=== PATIENT | female | born 1985 | race Caucasian/White ===

== ENCOUNTER 2018-07-22 02:44 | Inpatient (IN) | payer BC ==
[2018-07-22] MEDS ORDERED: Sodium Chloride 0.9% 10 ML Syringe FLUSH PRN (03:55)
[2018-07-22] MEDS ORDERED: ceFAZolin 2 GM in Premix Bag 1 BAG IV ONE (03:55)
[2018-07-22] MEDS ORDERED: Citric Acid/Sodium Citrate Solution 30 ML Cup PO ONE (03:55)
[2018-07-22] MEDS ORDERED: Metoclopramide 10 MG/2 ML SDV IVPUSH ONE (03:55)
[2018-07-22] MEDS ORDERED: Nalbuphine 20 MG/ML 1 ML Syringe IVPUSH PRN (03:55)
[2018-07-22] MEDS ORDERED: Lactated Ringers 1,000 ML IV SCH (04:00)
[2018-07-22] MEDS ORDERED: Oxytocin/Lactated Ringers 10 UNIT/1,000 ML BAG IV SCH (04:00)
[2018-07-22] MEDS ORDERED: Ketorolac 30 MG/ML SDV ONE (04:14)
[2018-07-22] MEDS ORDERED: ceFAZolin 1 GM Vial ONE (04:14)
[2018-07-22] MEDS ORDERED: Lactated Ringers 2,000 ML ONE (04:14)
[2018-07-22] MEDS ORDERED: Oxytocin 10 Units/1 ML SDV ONE (04:14)
[2018-07-22] MEDS ORDERED: Morphine PF 10 MG/10 ML SDV ONE (04:14)
[2018-07-22] MEDS ORDERED: Ondansetron 4 MG/2 ML SDV ONE (04:14)
--- NOTE | 2018-07-22 04:15 | PCM.LDHP ---
L&D History of Present Illness - General Date of Service: 07/22/18 Admit Problem/Dx: Patient Status Order with Admit Dx/Problem 07/22/18 02:55 Patient Status [ADT] Routine 07/22/18 03:56 Patient Status [ADT] Routine Admission Diagnosis/Problem Admission Diagnosis/Problem Source of Information: Patient History Limitations: Reports: No Limitations - History of Present Illness Introduction:: Patient is a 33 y/o at 36 2/7 wks who presents today with concerns of leaking fluid. Started this AM. No significant contractions otherwise. Notes good FM. 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: : 2 Para: 1 LMP (Approximate): Psychiatric History: Reports: Depression Endocrine/Metabolic History: Reports: Hypothyroidism, Other (See Below) (PCOS) - Past Surgical History HEENT Surgical History: Reports: Myringotomy w Tube(s), Oral Surgery Social & Family History - Tobacco Use Smoking Status *Q: Never Smoker - Alcohol Use Alcohol Use History: No - Recreational Drug Use Recreational Drug Use: No H&P Review of Systems - Review of Systems: Review Of Systems: See Below General: Reports: No Symptoms Pulmonary: Reports: No Symptoms Cardiovascular: Reports: No Symptoms Gastrointestinal: Reports: No Symptoms Genitourinary: Reports: No Symptoms Musculoskeletal: Reports: No Symptoms Psychiatric: Reports: No Symptoms Neurological: Reports: No Symptoms L&D Exam - Exam Exam: See Below - Vital Signs Weight: 57.606 kg - OB Specific Contraction Intensity: Mild Movement: Active Heart Tones: Present Heart Tones per Min: 145 Heart Rate (FHR) Variability: Moderate (6-25 bmp) Presentation: Transverse (back up) - Exam General: Alert, Oriented, Cooperative Lungs: Clear to Auscultation, Normal Respiratory Effort Cardiovascular: Regular Rate, Regular Rhythm GI/Abdominal Exam: Soft, Non-Tender Back Exam: Normal Inspection Extremities: Normal Inspection Skin: Warm, Dry, Intact - Patient Data Lab Results Last 24 hrs: Laboratory Results - last 24 hr 07/22/18 Range/Units 03:30 Membrane Rupture Positive H - Problem List (1) 36 to 37 weeks gestation of SNOMED Code(s): 472732003 ICD Code: [id number] - Status: Acute Current Visit: Yes (2) Spontaneous rupture of membranes SNOMED Code(s): 178771008 ICD Code: [id number] - Status: Acute Current Visit: Yes (3) Transverse or oblique presentation of fetus SNOMED Code(s): 48948397 ICD Code: O32.2XX0 - MATERNAL CARE FOR TRANSVERSE AND OBLIQUE LIE, UNSP Status: Acute Current Visit: Yes Qualifiers: Fetus number: single or unspecified fetus Qualified Code(s): O32.2XX0 - Maternal care for transverse and oblique lie, not applicable or unspecified Problem List Initiated/Reviewed/Updated: Yes Orders Last 24hrs: Active Orders 24 hr Category Date Time Status Patient Status [ADT] Routine ADT 07/22/18 03:56 Active Communication Order [RC] ROUTINE Care 07/22/18 03:56 Active Heart Tones [RC] PER UNIT ROUTINE Care 07/22/18 03:56 Active Non Stress Test [RC] PER UNIT ROUTINE Care 07/22/18 02:55 Active Non Stress Test [RC] PER UNIT ROUTINE Care 07/22/18 03:56 Active Peripheral IV Care [RC] . DIRECTED Care 07/22/18 03:56 Active Procedure Site Prep Instruct [RC] ASDIRECTED Care 07/22/18 03:56 Active Verify Patient Consent Obtain [RC] PER UNIT ROUTINE Care 07/22/18 03:56 Active Vital Signs [RC] PER UNIT ROUTINE Care 07/22/18 02:55 Active Vital Signs [RC] PFP Care 07/22/18 03:56 Active CBC WITH AUTO DIFF [HEME] Stat Lab 07/22/18 04:03 Received RAPID PLASMA REAGIN,RPR [CHEM] Routine Lab 07/22/18 04:03 Received TYPE AND SCREEN [BBK] Stat Lab 07/22/18 04:03 Received Lactated Ringers [Ringers, Lactated] 1,000 ml Med 07/22/18 04:00 Active IV ASDIRECTED Nalbuphine [Nubain] Med 07/22/18 03:55 Active 10 mg IVPUSH Q2H PRN Oxytocin/Lactated Ringers [Pitocin in LR 10 Units/1,000 Med 07/22/18 04:00 Active ML] 10 unit in 1,000 ml IV ASDIRECTED Sodium Chloride 0.9% [Saline Flush] Med 07/22/18 03:55 Active 10 ml FLUSH ASDIRECTED PRN ceFAZolin [Ancef] 2 gm Med 07/22/18 03:55 Active Premix Bag 1 bag IV ONETIME Peripheral IV Insertion Adult [OM.PC] Routine Oth 07/22/18 03:56 Ordered Schedule Procedure [COMM] Per Unit Routine Oth 07/22/18 03:56 Ordered Resuscitation Status Routine Resus Stat 07/22/18 02:55 Ordered Medication Orders Cefazolin Sodium/Dextrose 2 gm (/ Premix) 50 mls @ 100 mls/hr IV ONETIME ONE Stop: 07/22/18 04:24 Lactated Ringer's (Ringers, Lactated) 1,000 mls @ 125 mls/hr IV ASDIRECTED ADDISON Oxytocin/Lactated Ringer's (Pitocin In Lr 10 Units/1,000 Ml) 10 unit in 1,000 mls @ 100 mls/hr IV ASDIRECTED ADDISON Nalbuphine HCl (Nubain) 10 mg IVPUSH Q2H PRN PRN Reason: pain Sodium Chloride (Saline Flush) 10 ml FLUSH ASDIRECTED PRN PRN Reason: Keep Vein Open Assessment/Plan Comment:: 33 y/o at 36 2/7 wks presents with SROM and transverse presentation. Will proceed with primary . Did discuss likely low transverse, however , at times transverse will require vertical incision as well. Reviewed implications of that procedure. She expressed understanding. * Labs * Ancef OCTOR * Consent reviewed and signed * Anesthesia and peds aware
--- NOTE | 2018-07-22 04:16 | PCM.OPNOTE ---
- General Post-Op/Procedure Note Date of Surgery/Procedure: 07/22/18 Operative Procedure(s): primary low transverse Findings: Baby Girl in a breech/transverse presentation. APGARS of 8 & 9. Weight of 5 lbs 3 oz. Normal appearance of the uterus, fallopian tubes, and ovaries. Pre Op Diagnosis: 36 weeks. SROM Post-Op Diagnosis: Same Anesthesia Technique: Spinal Primary Surgeon: Connie Forrester Secondary Surgeon: Colton Simeon Anesthesia Provider: Raquel Cevallos Reason Silviculture Professor Was Necessary: Speed/safety of procedure. No available assistant professor surgical technology assist Pathology: Cord blood collected. Placenta discarded. Fluid Replacement, Intraop: 2,200 Output, Urine Amount: 50 EBL in mLs: 500 Complications: None Condition: Good Free Text/Narrative:: The risks, benefits, indications, potential complications, and alternatives were explained to the patient and informed consent obtained. After induction of anesthesia, the patient was placed in a supine position and then draped and prepped in the usual sterile manner. A Pfannenstiel incision was made and carried down through the subcutaneous tissue to the fascia. Fascial incision was made and extended transversely. The fascia was from the underlying rectus tissue superiorly and inferiorly. The peritoneum was identified and entered. Peritoneal incision was extended longitudinally. The utero-vesical peritoneal reflection was incised transversely and the bladder flap was bluntly freed from the lower uterine segment. A low transverse uterine incision was made sharply with a scalpel and extended bluntly in a cephalocaudad direction. A baby girl was delivered from a breech presentation with standard maneuvers. APGARS as above. After the umbilical cord was clamped and cut cord blood was obtained for evaluation. The placenta was removed intact and appeared normal. The uterus was exteriorized and cleared of clots. The uterine outline, tubes and ovaries appeared normal. The uterine incision was closed with running locked sutures of 0 Vicryl. Hemostasis was obtained with a second imbricating layer of 0 vicryl. The uterus was then placed back into the abdomen. The infracolic gutters were cleared of blood clots. The fascia was then reapproximated with running sutures of 0 Vicryl. The subcutaneous tissue was irrigated with sterile warm normal saline, hemostasis obtained with cautery. A running suture of 0 vicryl was also placed in the subcutaneous tissues to close this space. The skin was reapproximated with running Subcuticular 4-0 monocryl sutures. Instrument, sponge, and needle counts were correct prior the abdominal closure and at the conclusion of the case.
[2018-07-22] MEDS ORDERED: Bupivacaine 0.5% 30 ML SDV ONE (05:02)
[2018-07-22] MEDS ORDERED: Meperidine 50 MG/ML Vial IVPUSH PRN (05:29)
[2018-07-22] MEDS ORDERED: ePHEDrine 50 MG/ML SDV IVPUSH PRN ×2 (05:29→08:02)
[2018-07-22] MEDS ORDERED: fentaNYL 100 MCG/2 ML SDV IVPUSH PRN (05:29)
[2018-07-22] MEDS ORDERED: diphenhydrAMINE 50 MG/ML SDV IVPUSH PRN ×2 (05:29→08:02)
--- NOTE | 2018-07-22 05:36 | PCM.PREANE ---
Preanesthetic Assessment - Anesthesia/Transfusion/Family Hx Anesthesia History: No Prior Anesthesia Family History of Anesthesia Reaction: No Transfusion History: No Prior Transfusion(s) - Review of Systems General: No Symptoms Pulmonary: No Symptoms Cardiovascular: No Symptoms Gastrointestinal: No Symptoms Neurological: Headache (Migraines) Other: Reports: Thyroid Problems - Physical Assessment NPO Status Date: 07/21/18 NPO Status Time: 18:00 Pulse: 60 O2 Sat by Pulse Oximetry: 98 Respiratory Rate: 16 Blood Pressure: 106/60 Height: 1.68 m Weight: 57.606 kg ASA Class: 2 Mental Status: Alert & Oriented x3 Airway Class: Mallampati = 1 Dentition: Reports: Normal Dentition Thyro-Mental Finger Breadths: 3 Mouth Opening Finger Breadths: 3 ROM/Head Extension: Full Lungs: Clear to Auscultation, Normal Respiratory Effort Cardiovascular: Regular Rate, Regular Rhythm - Lab Values: Laboratory Last Values WBC 9.88 K/mm3 (3.98-10.04) 07/22/18 04:03 RBC 3.75 M/mm3 (3.98-5.22) L 07/22/18 04:03 Hgb 11.7 gm/L (11.2-15.7) 07/22/18 04:03 Hct 35.9 % (34.1-44.9) 07/22/18 04:03 MCV 95.7 fl (79.4-94.8) H 07/22/18 04:03 MCH 31.2 pg (25.6-32.2) 07/22/18 04:03 MCHC 32.6 g/dl (32.2-35.5) 07/22/18 04:03 RDW Std Deviation 46.2 fL (36.4-46.3) 07/22/18 04:03 Plt Count 200 K/mm3 (182-369) 07/22/18 04:03 MPV 11.8 fl (9.4-12.3) 07/22/18 04:03 Neut % (Auto) 65.6 % (34.0-71.1) 07/22/18 04:03 Lymph % (Auto) 24.7 % (19.3-51.7) 07/22/18 04:03 [place] % (Auto) 7.9 % (4.7-12.5) 07/22/18 04:03 Eos % (Auto) 0.5 (0.7-5.8) L 07/22/18 04:03 Baso % (Auto) 0.2 % (0.1-1.2) 07/22/18 04:03 Neut # (Auto) 6.48 K/mm3 (1.56-6.13) H 07/22/18 04:03 Lymph # (Auto) 2.44 K/mm3 (1.18-3.74) 07/22/18 04:03 [place] # (Auto) 0.78 K/mm3 (0.24-0.36) H 07/22/18 04:03 Eos # (Auto) 0.05 K/mm3 (0.04-0.36) 07/22/18 04:03 Baso # (Auto) 0.02 K/mm3 (0.01-0.08) 07/22/18 04:03 Manual Slide Review Abnormal smear 07/22/18 04:03 Membrane Rupture Positive H 07/22/18 03:30 Blood Type B POSITIVE 07/22/18 04:03 Gel Antibody Screen Negative 07/22/18 04:03 - Allergies Allergies/Adverse Reactions: Allergies Allergy/AdvReac Type Severity Reaction Status Date / Time No Known Allergies Allergy Verified 07/22/18 02:55 - Anesthesia Plan Pre-Op Medication Ordered: Antacids (Metocolpramide and Bicitra) - Acknowledgements Anesthesia Type Planned: Spinal Pt an Appropriate Candidate for the Planned Anesthesia: Yes Alternatives and Risks of Anesthesia Discussed w Pt/Guardian: Yes Pt/Guardian Understands and Agrees with Anesthesia Plan: Yes PreAnesthesia Questionnaire [employer]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: Psychiatric History: Reports: Depression Endocrine/Metabolic History: Reports: Hypothyroidism, Other (See Below) (PCOS) - Past Surgical History HEENT Surgical History: Reports: Myringotomy w Tube(s), Oral Surgery - SUBSTANCE USE Smoking Status *Q: Never Smoker Recreational Drug Use History: No - CURRENT (IN HOUSE) MEDS Current Meds: Current Medications Lactated Ringer's (Ringers, Lactated) 1,000 mls @ 125 mls/hr IV ASDIRECTED ADDISON Last Admin: 07/22/18 04:10 Dose: 999 mls/hr Oxytocin/Lactated Ringer's (Pitocin In Lr 10 Units/1,000 Ml) 10 unit in 1,000 mls @ 100 mls/hr IV ASDIRECTED ADDISON Nalbuphine HCl (Nubain) 10 mg IVPUSH Q2H PRN PRN Reason: pain Sodium Chloride (Saline Flush) 10 ml FLUSH ASDIRECTED PRN PRN Reason: Keep Vein Open Discontinued Medications Bupivacaine HCl (Marcaine 0.5%) Confirm Administered Dose 30 ml .ROUTE .STK-MED ONE Stop: 07/22/18 05:03 Cefazolin Sodium (Ancef) Confirm Administered Dose 2 gm .ROUTE .STK-MED ONE Stop: 07/22/18 04:15 Citric Acid/Sodium Citrate (Bicitra Solution) 30 ml PO ONETIME ONE Stop: 07/22/18 03:56 Last Admin: 07/22/18 04:26 Dose: 30 ml Cefazolin Sodium/Dextrose 2 gm (/ Premix) 50 mls @ 100 mls/hr IV ONETIME ONE Stop: 07/22/18 04:24 Lactated Ringer's (Ringers, Lactated) Confirm Administered Dose 2,000 mls @ as directed .ROUTE .STK-MED ONE Stop: 07/22/18 04:15 Ketorolac Tromethamine (Toradol) Confirm Administered Dose 30 mg .ROUTE .STK- MED ONE Stop: 07/22/18 04:15 Metoclopramide HCl (Reglan) 10 mg IVPUSH ONETIME ONE Stop: 07/22/18 03:56 Last Admin: 07/22/18 04:27 Dose: 10 mg Morphine Sulfate (Duramorph Pf) Confirm Administered Dose 10 mg .ROUTE .STK-MED ONE Stop: 07/22/18 04:15 Ondansetron HCl (Zofran) Confirm Administered Dose 4 mg .ROUTE .STK-MED ONE Stop: 07/22/18 04:15 Oxytocin (Pitocin) Confirm Administered Dose 10 unit .ROUTE .STK-MED ONE Stop: 07/22/18 04:15
--- NOTE | 2018-07-22 05:57 | PCM.POSTAN ---
POST ANESTHESIA ASSESSMENT - MENTAL STATUS Mental Status: Alert, Oriented - VITAL SIGNS Pulse Rate: 70 SaO2: 100 Resp Rate: 16 Blood Pressure: 104/58 Temperature: 36.3 C - RESPIRATORY Respiratory Status: Respiratory Rate WNL, Airway Patent, O2 Saturation Stable, Supplemental Oxygen - CARDIOVASCULAR CV Status: Pulse Rate WNL, Blood Pressure Stable - GASTROINTESTINAL GI Status: No Symptoms - PAIN Pain Score: 0 - POST OP HYDRATION Hydration Status: Adequate & Stable
[2018-07-22] MEDS ORDERED: Dextrose 5%-Lactated Ringers 1,000 ML IV SCH (08:02)
[2018-07-22] MEDS ORDERED: Ondansetron 4 MG/2 ML SDV IV PRN (08:02)
[2018-07-22] MEDS ORDERED: Lanolin 100% Cream 7 GM Tube TOP PRN (08:02)
--- NOTE | 2018-07-22 10:05 | PCM48HPAN ---
Post Anesthesia Note - EVALUATION WITHIN 48HRS OF ANESTHETIC Vital Signs in Normal Range: Yes Patient Participated in Evaluation: Yes Respiratory Function Stable: Yes Airway Patent: Yes Cardiovascular Function Stable: Yes Hydration Status Stable: Yes Pain Control Satisfactory: Yes Nausea and Vomiting Control Satisfactory: Yes Mental Status Recovered: Yes
[2018-07-22] MEDS: Ketorolac 30 MG/ML SDV IVPUSH SCH ×3 (12:20→23:45)
[2018-07-23] MEDS: Acetaminophen 325 MG Tab PO PRN ×4 (03:52→21:30)
[2018-07-23] MEDS: Ibuprofen 600 MG Tab PO PRN ×3 (05:27→18:51)
--- NOTE | 2018-07-23 06:54 | PCM.PNPP ---
- General Info Date of Service: 07/23/18 Functional Status: Reports: Pain Controlled, Tolerating Diet, Ambulating, Urinating - Review of Systems General: Reports: No Symptoms Pulmonary: Reports: No Symptoms Cardiovascular: Reports: No Symptoms Gastrointestinal: Reports: Abdominal Pain (managed with medications ) Genitourinary: Reports: No Symptoms Musculoskeletal: Reports: No Symptoms - Patient Data Vital Signs - Most Recent: Last Vital Signs Temp 37.2 C 07/23/18 03:37 Pulse 70 07/23/18 03:37 Resp 14 07/23/18 03:37 BP 108/61 07/23/18 03:37 Pulse Ox 100 07/23/18 03:37 Weight - Most Recent: 57.606 kg I&O - Last 24 Hours: Intake & Output 07/22/18 07/22/18 07/23/18 14:59 22:59 06:59 Intake Total 998 430 1858 Output Total 600 1750 1450 Balance -360 -1510 750 Lab Results - Last 24 Hours: Laboratory Results - last 24 hr 07/22/18 Range/Units 04:03 RPR Non-reactive (NONREACTIVE) Med Orders - Current: Current Medications Acetaminophen (Tylenol) 650 mg PO Q4H PRN PRN Reason: Pain Last Admin: 07/23/18 03:52 Dose: 650 mg Diphenhydramine HCl (Benadryl) 25 mg IVPUSH Q6H PRN PRN Reason: Itching or Nausea Docusate Sodium (Colace) 100 mg PO Q12H PRN PRN Reason: Constipation Emollient Ointment (Lansinoh Hpa) 0 gm TOP ASDIRECTED PRN PRN Reason: Sore Nipples Ephedrine Sulfate (Ephedrine Sulfate) 5 mg IVPUSH ASDIRECTED PRN PRN Reason: Hypotension Ephedrine Sulfate (Ephedrine Sulfate) 5 mg IVPUSH SEECOMMENT PRN PRN Reason: Other Fentanyl (Sublimaze) 50 mcg IVPUSH Q5M PRN PRN Reason: Pain Ibuprofen (Motrin) 600 mg PO Q6H PRN PRN Reason: mild pain or fever Last Admin: 07/23/18 05:27 Dose: 600 mg Meperidine HCl (Meperidine) 12.5 mg IVPUSH ONETIME PRN PRN Reason: Shivering Ondansetron HCl (Zofran) 4 mg IV Q8H PRN PRN Reason: Nausea/Vomiting Oxycodone/Acetaminophen (Percocet 325-5 Mg) 2 tab PO Q4H PRN PRN Reason: Pain (moderate 4-6) Discontinued Medications Bupivacaine HCl (Marcaine 0.5%) Confirm Administered Dose 30 ml .ROUTE .STK-MED ONE Stop: 07/22/18 05:03 Last Admin: 07/22/18 05:04 Dose: 10 ml Cefazolin Sodium (Ancef) Confirm Administered Dose 2 gm .ROUTE .[facility]-MED ONE Stop: 07/22/18 04:15 Citric Acid/Sodium Citrate (Bicitra Solution) 30 ml PO ONETIME ONE Stop: 07/22/18 03:56 Last Admin: 07/22/18 04:26 Dose: 30 ml Diphenhydramine HCl (Benadryl) 25 mg IVPUSH Q6H PRN PRN Reason: Pruritis Cefazolin Sodium/Dextrose 2 gm (/ Premix) 50 mls @ 100 mls/hr IV ONETIME ONE Stop: 07/22/18 04:24 Last Admin: 07/22/18 08:19 Dose: Not Given Lactated Ringer's (Ringers, Lactated) 1,000 mls @ 125 [facility]ls[facility] Last Admin: 07/22/18 04:10 Dose: 999 mls/hr Oxytocin/Lactated Ringer's (Pitocin In Lr 10 Units/1,000 Ml) 10 unit in 1,000 mls @ 100 [facility]ls[facility] Lactated Ringer's (Ringers, Lactated) Confirm Administered Dose 2,000 mls @ as directed .ROUTE .[facility]-MED ONE Stop: 07/22/18 04:15 Dextrose/Lactated Ringer's (Dextrose 5%-Lactated Ringers) 1,000 mls @ 125 mls/ hr IV ASDIRECTED [facility] Stop: 07/22/18 16:01 Last Admin: 07/22/18 08:52 Dose: 125 mls/hr Ketorolac Tromethamine (Toradol) Confirm Administered Dose 30 mg .ROUTE .STK- MED ONE Stop: 07/22/18 04:15 Ketorolac Tromethamine (Toradol) 30 mg IVPUSH Q6H [facility] Stop: 07/22/18 23:31 Last Admin: 07/22/18 23:45 Dose: 30 mg Metoclopramide HCl (Reglan) 10 mg IVPUSH ONETIME ONE Stop: 07/22/18 03:56 Last Admin: 07/22/18 04:27 Dose: 10 mg Morphine Sulfate (Duramorph Pf) Confirm Administered Dose 10 mg .ROUTE .STK-MED ONE Stop: 07/22/18 04:15 Nalbuphine HCl (Nubain) 10 mg IVPUSH Q2H PRN PRN Reason: pain Ondansetron HCl (Zofran) Confirm Administered Dose 4 mg .ROUTE .STK-MED ONE Stop: 07/22/18 04:15 Oxytocin (Pitocin) Confirm Administered Dose 10 unit .ROUTE .STK-MED ONE Stop: 07/22/18 04:15 Sodium Chloride (Saline Flush) 10 ml FLUSH ASDIRECTED PRN PRN Reason: Keep Vein Open - Interaction Disposition, : in Room with Family Infant Interaction: Holding Infant Infant Feeding: Breastfed Infant; Nursed Well Support Person: - Recovery Exam Fundal Tone: Firm Fundal Level: 2 Fingerbreadths Below Umbilicus Fundal Placement: Midline Lochia Amount: Small Lochia Color: Rubra/Red Perineum Description: Intact, Minimal Bruising/Swelling Episiotomy/Laceration: None Bladder Status: Voiding Urinary Elimination: Voided - Exam General: Alert, Oriented, Cooperative Lungs: Clear to Auscultation, Normal Respiratory Effort Cardiovascular: Regular Rate, Regular Rhythm GI/Abdominal Exam: Soft, Tender (Appropriate post op) Extremities: Normal Inspection Skin: Warm, Dry, Intact Wound/Incisions: Healing Well, No Drainage - Problem List & Annotations (1) 36 to 37 weeks gestation of SNOMED Code(s): 342767540 Code(s): WWA6345 - Status: Acute Current Visit: Yes (2) Spontaneous rupture of membranes SNOMED Code(s): 001782181 Code(s): LOM6116 - Status: Acute Current Visit: Yes (3) Transverse or oblique presentation of fetus SNOMED Code(s): 29787285 Code(s): O32.2XX0 - MATERNAL CARE FOR TRANSVERSE AND OBLIQUE LIE, UNSP Status: Acute Current Visit: Yes Qualifiers: Fetus number: single or unspecified fetus Qualified Code(s): O32.2XX0 - Maternal care for transverse and oblique lie, not applicable or unspecified - Problem List Review Problem List Initiated/Reviewed/Updated: Yes - My Orders Last 24 Hours: My Active Orders 07/22/18 08:02 Antiembolic Devices [RC] PER UNIT ROUTINE Communication Order [RC] PER UNIT ROUTINE Intake and Output [RC] Q4H Notify Provider Intake and Out [RC] ASDIRECTED RT Incentive Spirometry [RC] Q2HWA Vital Signs [RC] 03,09,15,21 Acetaminophen/oxyCODONE [Percocet 325-5 MG] 2 tab PO Q4H PRN Docusate Sodium [Colace] 100 mg PO Q12H PRN Lanolin [Lansinoh HPA] See Dose Instructions TOP ASDIRECTED PRN Ondansetron [Zofran] 4 mg IV Q8H PRN diphenhydrAMINE [Benadryl] 25 mg IVPUSH Q6H PRN ePHEDrine [ePHEDrine sulfate] 5 mg IVPUSH SEECOMMENT PRN Assess Lochia [WOMSER] Per Unit Routine Assess Uterine Involution [WOMSER] Per Unit Routine Breast Pump [WOMSER] Per Unit Routine Heat Therapy [OM.PC] Per Unit Routine Peripheral IV Discontinue [OM.PC] Routine Sequential Compression Device [OM.PC] Per Unit Routine 07/22/18 Breakfast Regular Diet [DIET] 07/23/18 03:22 Acetaminophen [Tylenol] 650 mg PO Q4H PRN 07/23/18 05:11 CBC W/O DIFF,HEMOGRAM [HEME] AM 07/23/18 05:30 Ibuprofen [Motrin] 600 mg PO Q6H PRN 07/23/18 05:48 Urinary Catheter Removal [RC] Per Unit Routine - Assessment Assessment:: 33y/o G2 now P1102 POD#1 from [facility] at 36 2/7 wks - Plan Plan:: S/p [facility] * Routine cares * Encourage breast feeding * Discharge home in 1-2 days
[2018-07-23] MEDS: Docusate Sodium 100 MG Cap PO PRN ×2 (08:16→20:45)
[2018-07-23] MEDS: Acetaminophen/oxyCODONE 325-5 MG Tab PO PRN (17:18)
[2018-07-24] MEDS: Ibuprofen 600 MG Tab PO PRN ×2 (02:30→08:05)
--- NOTE | 2018-07-24 06:02 | PCM.DCSUM1 ---
Discharge Summary - Discharge Data Discharge Date: 07/24/18 Discharge Disposition: Home, Self-Care 01 Condition: Good - Discharge Diagnosis/Problem(s) (1) 36 to 37 weeks gestation of SNOMED Code(s): 302422457 ICD Code: [id number] - Status: Acute Current Visit: Yes (2) Spontaneous rupture of membranes SNOMED Code(s): 174392308 ICD Code: [id number] - Status: Acute Current Visit: Yes (3) Transverse or oblique presentation of fetus SNOMED Code(s): 50684610 ICD Code: O32.2XX0 - MATERNAL CARE FOR TRANSVERSE AND OBLIQUE LIE, UNSP Status: Acute Current Visit: Yes Qualifiers: Fetus number: single or unspecified fetus Qualified Code(s): O32.2XX0 - Maternal care for transverse and oblique lie, not applicable or unspecified (4) S/P primary low transverse SNOMED Code(s): 986630375, 82137183, 246047180, 548109965, 213764810 ICD Code: Z98.891 - HISTORY OF UTERINE SCAR FROM PREVIOUS SURGERY Status: Acute Current Visit: Yes - Patient Summary/Data Operative Procedure(s) Performed: primary low transverse Complications: None Consults: None Recommended Follow-up Testing/Procedures: Follow up in 1-2 weeks for postop check Hospital Course: Patient is a 33 at 36 2/7 wks presented with PROM. Was also found to be breech/oblique lie. For this reason she was taken for PLTCS. This was uncomplicated. See operative note. she did well and was discharged home on POD#2 - Patient Instructions Diet: Regular Diet as Tolerated Activity: No Lifting Over 10 Pounds Activity, Other: Pelvic Rest for 6 weeks Driving: Do Not Drive (While taking narcotics ) Showering/Bathing: May Shower, No Tub Bathing/Swimming Wound/Incision Care: Keep Operative Site/Wound Site Clean and Dry Notify Provider of: Fever, Increased Pain, Swelling and Redness, Drainage, Nausea and/or Vomiting - Discharge Plan *PRESCRIPTION DRUG MONITORING PROGRAM REVIEWED*: No *COPY OF PRESCRIPTION DRUG MONITORING REPORT IN PATIENT PAVAN: No Prescriptions/Med Rec: Acetaminophen/oxyCODONE [Percocet 325-5 MG] 1 - 2 tab PO Q4H PRN #20 tablet PRN Reason: Pain (Moderate 4-6) Home Medications: Home Meds Acetaminophen/oxyCODONE [Percocet 325-5 MG] 1 - 2 tab PO Q4H PRN #20 tablet 07/09 [Rx] Docusate Sodium [Colace] 100 mg PO Q12H PRN cap 07/24/18 [Rx] Ibuprofen [Motrin] 600 mg PO Q6H PRN tablet 07/24/18 [Rx] Patient Handouts: Tips for a Good Latch Referrals: Connie Forrester MD [Primary Care Provider] - (1-2 weeks for incision check) - Discharge Summary/Plan Comment DC Time >30 min.: No - Patient Data Vitals - Most Recent: Last Vital Signs Temp 36.4 C 07/24/18 02:29 Pulse 57 L 07/24/18 02:29 Resp 16 07/24/18 02:29 BP 118/62 07/24/18 02:29 Pulse Ox 100 07/24/18 02:29 Weight - Most Recent: 57.606 kg I&O - Last 24 hours: Intake & Output 07/23/18 07/23/18 07/24/18 14:59 22:59 06:59 Intake Total 660 300 Balance 660 300 Lab Results - Last 24 hrs: Laboratory Results - last 24 hr 07/22/18 07/23/18 Range/Units 03:30 06:27 WBC 12.47 H (3.98-10.04) K/mm3 RBC 3.04 L (3.98-5.22) M/mm3 Hgb 9.5 L (11.2-15.7) gm/L Hct 29.5 L (34.1-44.9) % MCV 97.0 H (79.4-94.8) fl MCH 31.3 (25.6-32.2) pg MCHC 32.2 (32.2-35.5) g/dl RDW Std Deviation 47.3 H (36.4-46.3) fL Plt Count 171 L (182-369) K/mm3 MPV 12.0 (9.4-12.3) fl Group B Strep (PCR) Positive H (NEGATIVE) Med Orders - Current: Current Medications Acetaminophen (Tylenol) 650 mg PO Q4H PRN PRN Reason: Pain Last Admin: 07/23/18 21:30 Dose: 650 mg Diphenhydramine HCl (Benadryl) 25 mg IVPUSH Q6H PRN PRN Reason: Itching or Nausea Docusate Sodium (Colace) 100 mg PO Q12H PRN PRN Reason: Constipation Last Admin: 07/23/18 20:45 Dose: 100 mg Emollient Ointment (Lansinoh Hpa) 0 gm TOP ASDIRECTED PRN PRN Reason: Sore Nipples Ephedrine Sulfate (Ephedrine Sulfate) 5 mg IVPUSH SEECOMMENT PRN PRN Reason: Other Fentanyl (Sublimaze) 50 mcg IVPUSH Q5M PRN PRN Reason: Pain Ibuprofen (Motrin) 600 mg PO Q6H PRN PRN Reason: mild pain or fever Last Admin: 07/24/18 02:30 Dose: 600 mg Meperidine HCl (Meperidine) 12.5 mg IVPUSH ONETIME PRN PRN Reason: Shivering Ondansetron HCl (Zofran) 4 mg IV Q8H PRN PRN Reason: Nausea/Vomiting Oxycodone/Acetaminophen (Percocet 325-5 Mg) 2 tab PO Q4H PRN PRN Reason: Pain (moderate 4-6) Last Admin: 07/23/18 17:18 Dose: 1 tab Discontinued Medications Bupivacaine HCl (Marcaine 0.5%) Confirm Administered Dose 30 ml .ROUTE .STK-MED ONE Stop: 07/22/18 05:03 Last Admin: 07/22/18 05:04 Dose: 10 ml Cefazolin Sodium (Ancef) Confirm Administered Dose 2 gm .ROUTE .STK-MED ONE Stop: 07/22/18 04:15 Citric Acid/Sodium Citrate (Bicitra Solution) 30 ml PO ONETIME ONE Stop: 07/22/18 03:56 Last Admin: 07/22/18 04:26 Dose: 30 ml Diphenhydramine HCl (Benadryl) 25 mg IVPUSH Q6H PRN PRN Reason: Pruritis Ephedrine Sulfate (Ephedrine Sulfate) 5 mg IVPUSH ASDIRECTED PRN PRN Reason: Hypotension Cefazolin Sodium/Dextrose 2 gm (/ Premix) 50 mls @ 100 mls/hr IV ONETIME ONE Stop: 07/22/18 04:24 Last Admin: 07/22/18 08:19 Dose: Not Given Lactated Ringer's (Ringers, Lactated) 1,000 mls @ 125 mls/hr IV ASDIRECTED [facility] Last Admin: 07/22/18 04:10 Dose: 999 mls/hr Oxytocin/Lactated Ringer's (Pitocin In Lr 10 Units/1,000 Ml) 10 unit in 1,000 mls @ 100 mls/hr IV ASDIRECTED [facility] Lactated Ringer's (Ringers, Lactated) Confirm Administered Dose 2,000 mls @ as directed .ROUTE .STK-MED ONE Stop: 07/22/18 04:15 Dextrose/Lactated Ringer's (Dextrose 5%-Lactated Ringers) 1,000 mls @ 125 mls/ hr IV ASDIRECTED [facility] Stop: 07/22/18 16:01 Last Admin: 07/22/18 08:52 Dose: 125 mls/hr Ketorolac Tromethamine (Toradol) Confirm Administered Dose 30 mg .ROUTE .STK- MED ONE Stop: 07/22/18 04:15 Ketorolac Tromethamine (Toradol) 30 mg IVPUSH Q6H [facility] Stop: 07/22/18 23:31 Last Admin: 07/22/18 23:45 Dose: 30 mg Metoclopramide HCl (Reglan) 10 mg IVPUSH ONETIME ONE Stop: 07/22/18 03:56 Last Admin: 07/22/18 04:27 Dose: 10 mg Morphine Sulfate (Duramorph Pf) Confirm Administered Dose 10 mg .ROUTE .STK-MED ONE Stop: 07/22/18 04:15 Nalbuphine HCl (Nubain) 10 mg IVPUSH Q2H PRN PRN Reason: pain Ondansetron HCl (Zofran) Confirm Administered Dose 4 mg .ROUTE .STK-MED ONE Stop: 07/22/18 04:15 Oxytocin (Pitocin) Confirm Administered Dose 10 unit .ROUTE .STK-MED ONE Stop: 07/22/18 04:15 Sodium Chloride (Saline Flush) 10 ml FLUSH ASDIRECTED PRN PRN Reason: Keep Vein Open
--- NOTE | 2018-07-24 06:02 | PCM.PNPP ---
- General Info Date of Service: 07/24/18 Functional Status: Reports: Pain Controlled, Tolerating Diet, Ambulating, Urinating - Review of Systems General: Reports: No Symptoms Pulmonary: Reports: No Symptoms Cardiovascular: Reports: No Symptoms Gastrointestinal: Reports: Abdominal Pain (managed with medications ) Genitourinary: Reports: No Symptoms Musculoskeletal: Reports: No Symptoms Neurological: Reports: No Symptoms - Patient Data Vital Signs - Most Recent: Last Vital Signs Temp 36.4 C 07/24/18 02:29 Pulse 57 L 07/24/18 02:29 Resp 16 07/24/18 02:29 BP 118/62 07/24/18 02:29 Pulse Ox 100 07/24/18 02:29 Weight - Most Recent: 57.606 kg I&O - Last 24 Hours: Intake & Output 07/23/18 07/23/18 07/24/18 14:59 22:59 06:59 Intake Total 660 300 Balance 660 300 Lab Results - Last 24 Hours: Laboratory Results - last 24 hr 07/22/18 07/23/18 Range/Units 03:30 06:27 WBC 12.47 H (3.98-10.04) K/mm3 RBC 3.04 L (3.98-5.22) M/mm3 Hgb 9.5 L (11.2-15.7) gm/L Hct 29.5 L (34.1-44.9) % MCV 97.0 H (79.4-94.8) fl MCH 31.3 (25.6-32.2) pg MCHC 32.2 (32.2-35.5) g/dl RDW Std Deviation 47.3 H (36.4-46.3) fL Plt Count 171 L (182-369) K/mm3 MPV 12.0 (9.4-12.3) fl Group B Strep (PCR) Positive H (NEGATIVE) Med Orders - Current: Current Medications Acetaminophen (Tylenol) 650 mg PO Q4H PRN PRN Reason: Pain Last Admin: 07/23/18 21:30 Dose: 650 mg Diphenhydramine HCl (Benadryl) 25 mg IVPUSH Q6H PRN PRN Reason: Itching or Nausea Docusate Sodium (Colace) 100 mg PO Q12H PRN PRN Reason: Constipation Last Admin: 07/23/18 20:45 Dose: 100 mg Emollient Ointment (Lansinoh Hpa) 0 gm TOP ASDIRECTED PRN PRN Reason: Sore Nipples Ephedrine Sulfate (Ephedrine Sulfate) 5 mg IVPUSH SEECOMMENT PRN PRN Reason: Other Fentanyl (Sublimaze) 50 mcg IVPUSH Q5M PRN PRN Reason: Pain Ibuprofen (Motrin) 600 mg PO Q6H PRN PRN Reason: mild pain or fever Last Admin: 07/24/18 02:30 Dose: 600 mg Meperidine HCl (Meperidine) 12.5 mg IVPUSH ONETIME PRN PRN Reason: Shivering Ondansetron HCl (Zofran) 4 mg IV Q8H PRN PRN Reason: Nausea/Vomiting Oxycodone/Acetaminophen (Percocet 325-5 Mg) 2 tab PO Q4H PRN PRN Reason: Pain (moderate 4-6) Last Admin: 07/23/18 17:18 Dose: 1 tab Discontinued Medications Bupivacaine HCl (Marcaine 0.5%) Confirm Administered Dose 30 ml .ROUTE .STK-MED ONE Stop: 07/22/18 05:03 Last Admin: 07/22/18 05:04 Dose: 10 ml Cefazolin Sodium (Ancef) Confirm Administered Dose 2 gm .ROUTE .STK-MED ONE Stop: 07/22/18 04:15 Citric Acid/Sodium Citrate (Bicitra Solution) 30 ml PO ONETIME ONE Stop: 07/22/18 03:56 Last Admin: 07/22/18 04:26 Dose: 30 ml Diphenhydramine HCl (Benadryl) 25 mg IVPUSH Q6H PRN PRN Reason: Pruritis Ephedrine Sulfate (Ephedrine Sulfate) 5 mg IVPUSH ASDIRECTED PRN PRN Reason: Hypotension Cefazolin Sodium/Dextrose 2 gm (/ Premix) 50 mls @ 100 mls/hr IV ONETIME ONE Stop: 07/22/18 04:24 Last Admin: 07/22/18 08:19 Dose: Not Given Lactated Ringer's (Ringers, Lactated) 1,000 mls @ 125 mls/hr IV ASDIRECTED [facility] Last Admin: 07/22/18 04:10 Dose: 999 mls/hr Oxytocin/Lactated Ringer's (Pitocin In Lr 10 Units/1,000 Ml) 10 unit in 1,000 mls @ 100 mls/hr IV ASDIRECTED [facility] Lactated Ringer's (Ringers, Lactated) Confirm Administered Dose 2,000 mls @ as directed .ROUTE .STK-MED ONE Stop: 07/22/18 04:15 Dextrose/Lactated Ringer's (Dextrose 5%-Lactated Ringers) 1,000 mls @ 125 mls/ hr IV ASDIRECTED [facility] Stop: 07/22/18 16:01 Last Admin: 07/22/18 08:52 Dose: 125 mls/hr Ketorolac Tromethamine (Toradol) Confirm Administered Dose 30 mg .ROUTE .STK- MED ONE Stop: 07/22/18 04:15 Ketorolac Tromethamine (Toradol) 30 mg IVPUSH Q6H [facility] Stop: 07/22/18 23:31 Last Admin: 07/22/18 23:45 Dose: 30 mg Metoclopramide HCl (Reglan) 10 mg IVPUSH ONETIME ONE Stop: 07/22/18 03:56 Last Admin: 07/22/18 04:27 Dose: 10 mg Morphine Sulfate (Duramorph Pf) Confirm Administered Dose 10 mg .ROUTE .STK-MED ONE Stop: 07/22/18 04:15 Nalbuphine HCl (Nubain) 10 mg IVPUSH Q2H PRN PRN Reason: pain Ondansetron HCl (Zofran) Confirm Administered Dose 4 mg .ROUTE .STK-MED ONE Stop: 07/22/18 04:15 Oxytocin (Pitocin) Confirm Administered Dose 10 unit .ROUTE .STK-MED ONE Stop: 07/22/18 04:15 Sodium Chloride (Saline Flush) 10 ml FLUSH ASDIRECTED PRN PRN Reason: Keep Vein Open - Infant Interaction Disposition, : Berry in Room with Family Infant Interaction: Holding Feeding: Breastfed Infant; Nursed Well Support Person: - Recovery Exam Fundal Tone: Firm Fundal Level: 2 Fingerbreadths Below Umbilicus Fundal Placement: Midline Lochia Amount: Scant Lochia Color: Rubra/Red Perineum Description: Intact, Minimal Bruising/Swelling Episiotomy/Laceration: None Bladder Status: Voiding Urinary Elimination: Voided - Exam General: Alert, Oriented, Cooperative Lungs: Clear to Auscultation, Normal Respiratory Effort Cardiovascular: Regular Rate, Regular Rhythm GI/Abdominal Exam: Soft, Tender (appropriate post op ) Extremities: Normal Inspection Skin: Warm, Dry, Intact Wound/Incisions: Healing Well, No Drainage - Problem List & Annotations (1) 36 to 37 weeks gestation of SNOMED Code(s): 697023548 Code(s): EDV0855 - Status: Acute Current Visit: Yes (2) Spontaneous rupture of membranes SNOMED Code(s): 288338714 Code(s): TEY9535 - Status: Acute Current Visit: Yes (3) Transverse or oblique presentation of fetus SNOMED Code(s): 86605936 Code(s): O32.2XX0 - MATERNAL CARE FOR TRANSVERSE AND OBLIQUE LIE, UNSP Status: Acute Current Visit: Yes Qualifiers: Fetus number: single or unspecified fetus Qualified Code(s): O32.2XX0 - Maternal care for transverse and oblique lie, not applicable or unspecified - Problem List Review Problem List Initiated/Reviewed/Updated: Yes - My Orders Last 24 Hours: My Active Orders 07/23/18 05:30 Ibuprofen [Motrin] 600 mg PO Q6H PRN 07/24/18 06:01 Ready for Discharge [RC] PER UNIT ROUTINE - Assessment Assessment:: 33y/o G2 now P1102 POD#2 from PLTCS at 36 2/7 wks - Plan Plan:: S/p PLTCS * Routine cares * Encourage breast feeding * Discharge home today per patient preference
[2018-07-24] MEDS: Acetaminophen 325 MG Tab PO PRN (06:06)
[2018-07-24] MEDS: Acetaminophen/oxyCODONE 325-5 MG Tab PO PRN (08:32)
--- NOTE | 2018-07-24 09:14 | PCM.SN ---
- Free Text/Narrative Note: 0900 Pt complain of headache. Headache worse with sitting up better when lying down. Discussed blood patch and risks benefits. At this time patient and wish to use conservative treatment - rest, hydration, percocet, coffee, and caffeine - to resolve headache. Encouragement and education provided.
== END 2018-07-24 11:20 | disposition home or self-care (01) | DRG 540 ==
LOC: JD.OB 02:44 → JD.OBCHECK 02:44 → JD.OB 03:56
PROVIDERS: ADMIT Obstetrics & Gynecology; ATTEND Obstetrics & Gynecology
PROC: 6A550ZT Pheresis of Cord Blood Stem Cells, Single (ICD-10-PCS; principal; 2018-07-22)
PROC: 10D00Z1 Extraction of Products of Conception, Low, Open Approach (ICD-10-PCS; principal; 2018-07-22)
DX: O32.2XX0 Maternal care for transverse and oblique lie, not applicable or unspecified (principal); O32.1XX0 Maternal care for breech presentation, not applicable or unspecified; Z37.0 Single live birth; O42.913 Preterm premature rupture of membranes, unspecified as to length of time between rupture and onset of labor, third trimester; Z3A.36 36 weeks gestation of pregnancy; O99.284 Endocrine, nutritional and metabolic diseases complicating childbirth; E28.2 Polycystic ovarian syndrome; E03.9 Hypothyroidism, unspecified; O99.344 Other mental disorders complicating childbirth; F32.9 Major depressive disorder, single episode, unspecified
CPT/HCPCS: 01961; 36415; 59025; 84112; 85025; 85027; 86592; 86850; 86900; 86901; 87653; A9270-GY; J0690; J1885; J2270; J2405; J2590; J2765; J3490; J7042; J7120